=== PATIENT | female | born 1990 | race Caucasian/White ===

== ENCOUNTER 2017-07-02 19:24 | Emergency (ER) | payer OTHER ==
[~2017-07-02] VITALS: Ht 162.6 cm; Wt 55.8 kg
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
[2017-07-02 20:26] LABS: ALBUMIN 3.8 g/dL (3.4-5.0); ALK PHOS 50 U/L (46-116); ALT (SGPT) 37 U/L (14-59); ANION GAP 11 (6-14); AST (SGOT) 27 U/L (15-37); BARBITURATES NEG (NEG); BENZODIAZEPINES NEG (NEG); BLOOD UREA NITROGEN 7 mg/dL (7-20); CALCIUM 9.4 mg/dL (8.5-10.1); CANNABINOIDS POS (NEG); CARBON DIOXIDE 25 mmol/L (21-32); CHLORIDE 100 mmol/L (98-107); COCAINE NEG (NEG); CREATININE 0.5 mg/dL (0.6-1.0); GLUCOSE 90 mg/dL (70-99); METHADONE NEG (NEG); OPIATES NEG (NEG); PHENCYCLIDINE NEG (NEG); SODIUM 136 mmol/L (136-145); TOTAL BILIRUBIN 0.1 mg/dL (0.2-1.0); TOTAL PROTEIN 7.3 g/dL (6.4-8.2)
[2017-07-02 20:30] LABS: AMPHETAMINE/METHAMPHETAMINE NEG (NEG); DIRECT BILIRUBIN < 0.1 mg/dL (0.0-0.2)
[2017-07-02 20:38] LABS: BILIRUBIN,URINE NEG (NEG); CLARITY,URINE HAZY; COLOR,URINE PINK; GLUCOSE,URINE NEG (NEG); NITRITE,URINE NEG (NEG); UROBILINOGEN,URINE 0.2 mg/dL (0.2 mg/dL)
[2017-07-02 20:39] LABS: BACTERIA,URINE 0 /HPF (0-FEW); RBC,URINE TNTC /HPF (0-2); SQUAMOUS EPITHELIAL CELL,UR OCC /LPF
[2017-07-02] MEDS: IV RINGERS SOLUTION,LACTATED 1,000 ML IV SCH ×2 (20:59→21:31)
[2017-07-02] MEDS ORDERED: ONDANSETRON PF 4 MG/2 ML VIAL. IV ONE (21:00)
[2017-07-02] MEDS ORDERED: FAMOTIDINE 20 MG/2 ML VIAL IVP ONE (21:00)
[2017-07-02 21:02] LABS: BASO % 1 % (0-3); EOS # 0.2 x10^3/uL (0.0-0.7); EOS % 2 % (0-3); HEMOGLOBIN 10.8 g/dL (12.0-15.5); LYMPH # 1.8 x10^3/uL (1.0-4.8); LYMPH % 20 % (24-48); MEAN CORPUSCULAR HEMOGLOBIN 32 pg (25-35); MEAN CORPUSCULAR HGB CONC 35 g/dL (31-37); MEAN CORPUSCULAR VOLUME 91 fL (79-100); MONO # 0.7 x10^3/uL (0.0-1.1); MONO % 8 % (0-9); NEUT # 6.2 x10^3uL (1.8-7.7); NEUT % 70 % (31-73); PLATELET COUNT 168 x10^3/uL (140-400); RED BLOOD COUNT 3.41 x10^6/uL (3.50-5.40); RED CELL DISTRIBUTION WIDTH 12.7 % (11.5-14.5); WHITE BLOOD COUNT 8.9 x10^3/uL (4.0-11.0)
--- NOTE | 2017-07-02 21:05 | RAD ---
Obstetrical ultrasound less than 14 weeks HISTORY: female with vaginal bleeding. TECHNIQUE: Transabdominal transducer with grayscale, M-mode Doppler and duplex Doppler sonography. FINDINGS: Cervical length 4.6 cm no shortening or funneling of the cervix. Uterus measures 13.6 x 7.9 x 9.9 cm. Single intrauterine fetus in breech position with crown-rump length 6.37 cm estimating sonographic gestational age of 12 weeks 5 days and date of delivery of January 09, 2018. heart rate 162 bpm. Subjectively normal volume of amniotic fluid. It is too early to characterize the placenta. Maternal left ovary measures 2.7 x 2.5 x 1.5 cm. Limited visualization of the right ovary measures 2.4 x 3.4 x 1.4 cm. It is too early for anatomic evaluation. No subchorionic hemorrhage. IMPRESSION: Single living intrauterine fetus with estimated sonographic gestational age of 12 weeks 5 days. See discussion above. Electronically signed by: En Villar MD (07/02/2017 9:01 PM) [facility]
[2017-07-02 21:18] LABS: INFLUENZA A PATIENT NEGATIVE (NEGATIVE); INFLUENZA B PATIENT NEGATIVE (NEGATIVE)
[2017-07-02 22:39] VITALS: BP 122/80
[2017-07-05 22:08] LABS: CHLAMYDIA PROBE Negative (Negative)
== END 2017-07-02 22:41 | disposition home or self-care (01) ==
LOC: ER 19:24
DX: O20.0 Threatened abortion (principal); O21.0 Mild hyperemesis gravidarum; O99.321 Drug use complicating pregnancy, first trimester; O99.011 Anemia complicating pregnancy, first trimester; O99.331 Smoking (tobacco) complicating pregnancy, first trimester; F12.10 Cannabis abuse, uncomplicated; Z3A.13 13 weeks gestation of pregnancy
CPT/HCPCS: 36415; 76801; 80048; 80076; 80307; 81001; 84702; 85025; 85610; 86900; 86901; 87086; 87491; 87591; 87804; 96361; 96374; 96375; 99285; J2405; J7120; Q0111; S0028; G0479

== ENCOUNTER 2019-10-17 09:14 | Emergency (ER) | payer MEDICAID, OTHER ==
[~2019-10-17] VITALS: Ht 162.6 cm; Wt 50.0 kg
[2019-10-17] MEDS ORDERED: IV NORMAL SALINE 1,000ML 1,000 ML IV ONE ×2 (09:30→09:45)
[2019-10-17 09:37] LABS: BASO # 0.1 x10^3/uL (0.0-0.2); BASO % 1 % (0-3); EOS # 0.3 x10^3/uL (0.0-0.7); EOS % 2 % (0-3); HEMATOCRIT 26.8 % (36.0-47.0); HEMOGLOBIN 9.1 g/dL (12.0-15.5); LYMPH # 1.8 x10^3/uL (1.0-4.8); LYMPH % 10 % (24-48); MEAN CORPUSCULAR HEMOGLOBIN 31 pg (25-35); MEAN CORPUSCULAR HGB CONC 34 g/dL (31-37); MEAN CORPUSCULAR VOLUME 92 fL (79-100); MONO % 5 % (0-9); NEUT # 14.7 x10^3uL (1.8-7.7); NEUT % 82 % (31-73); PLATELET COUNT 234 x10^3/uL (140-400); RED BLOOD COUNT 2.91 x10^6/uL (3.50-5.40); RED CELL DISTRIBUTION WIDTH 13.9 % (11.5-14.5); WHITE BLOOD COUNT 17.9 x10^3/uL (4.0-11.0)
[2019-10-17 09:45] LABS: ANION GAP 8 (6-14); BLOOD UREA NITROGEN 7 mg/dL (7-20); BUN/CREATININE RATIO 12 (6-20); CARBON DIOXIDE 25 mmol/L (21-32); CHLORIDE 105 mmol/L (98-107); CREATININE 0.6 mg/dL (0.6-1.0); GFR 118.2; GLUCOSE 126 mg/dL (70-99); POTASSIUM 3.5 mmol/L (3.5-5.1); SODIUM 138 mmol/L (136-145)
[2019-10-17 09:51] LABS: ALBUMIN 2.2 g/dL (3.4-5.0); ALBUMIN/GLOBULIN RATIO 0.8 (1.0-1.7); ALK PHOS 49 U/L (46-116); ALT (SGPT) 18 U/L (14-59); AST (SGOT) 18 U/L (15-37); MAGNESIUM 1.6 mg/dL (1.8-2.4)
[2019-10-17 10:11] LABS: BILIRUBIN,URINE NEG (NEG); CLARITY,URINE HAZY; COLOR,URINE YELLOW; GLUCOSE,URINE NEG (NEG); NITRITE,URINE NEG (NEG); UROBILINOGEN,URINE 0.2 mg/dL (0.2 mg/dL)
[2019-10-17 10:12] LABS: BACTERIA,URINE 0 /HPF (0-FEW); SQUAMOUS EPITHELIAL CELL,UR FEW /LPF; WBC,URINE 20-40 /HPF (0-4)
[2019-10-17 10:18] LABS: BARBITURATES NEG (NEG); BENZODIAZEPINES POS (NEG); CANNABINOIDS POS (NEG); COCAINE NEG (NEG); METHADONE NEG (NEG); OPIATES NEG (NEG); PHENCYCLIDINE NEG (NEG)
[2019-10-17 10:20] LABS: AMPHETAMINE/METHAMPHETAMINE POS (NEG)
[2019-10-17 10:22] LABS: TOTAL BILIRUBIN < 0.1 mg/dL (0.2-1.0)
--- NOTE | 2019-10-17 10:28 | PHYS DOC ---
Past History Past Medical History: Anxiety, Other Additional Past Medical Histor: PTSD Past Surgical History: No Surgical History Smoking: Cigarettes Alcohol Use: None Drug Use: Marijuana General Adult EDM: Chief Complaint: VAGINAL BLEEDING HPI: HPI: 29 year old female presents via EMS with report of "excessive vaginal bleeding" with concern for active miscarriage. Patient reports she thinks she previously delivered the fetus at home, but "flushed it down the toilet". Reports she is unsure how far along she would be. Reports this would be her 6th and 2nd miscarriage. Reports lightheadedness and dizziness. Reports bleeding started last night. EMS reports patient's initial blood pressure upon arrival was 60s/40s. EMS reports starting line and giving IVF with improvement. History of present illness limited as patient poor historian and appears under influence of drugs or ETOH. Patient denies ETOH but reports THC use. Review of Systems: Review of Systems: Constitutional: Denies fever or chills Respiratory: Denies cough or shortness of breath Cardiovascular: Denies chest pain or palpitations GI: Reports lower pelvic/abdominal cramping; denies nausea or vomiting : Denies dysuria or hematuria FERMENTER OPERATOR: Reports and significant vaginal bleeding with passage of clots and tissue Neurologic: Denies headache; reports lightheadedness or dizziness Review of systems limited as patient poor historian and appears under influence of drugs or ETOH. Current Medications: Current Meds: Current Medications Medications (Trade) Dose Ordered Sig/Elroy Start Time Stop Time Status Last Admin Dose Admin Sodium Chloride 1,000 ml @ 1,000 mls/hr 1X ONCE 10/17/19 09:45 10/17/19 10:44 10/17/19 09:45 1,000 MLS/HR Allergies: Allergies: Allergies Coded Allergies Type Severity Reaction Last Updated Verified No Known Drug Allergies 07/02/17 No Physical Exam: PE: Constitutional: Well developed, pale, slow to respond to questioning HENT: Normocephalic, atraumatic Eyes: Conjunctiva normal, no discharge Neck: Normal range of motion, no tenderness, supple Cardiovascular: Heart rate normal, regular rhythm Lungs & Thorax: Bilateral breath sounds clear to auscultation, no wheezing Abdomen: Soft, lower quadrant/pelvis tenderness Pelvic exam: General Pediatrician RNs, external genitalia normal, large clots removed from vaginal vault, products of conception appear in open os, manually removed a portion with ring forceps Skin: Warm, dry, pallor Extremities: No tenderness, ROM intact, no edema Neurologic: Alert and oriented X 3, slurred speech, appears intoxicated, no focal deficits noted Current Patient Data: Labs: Laboratory Tests Test 10/17/19 09:15 White Blood Count 17.9 x10^3/uL (4.0-11.0) H Red Blood Count 2.91 x10^6/uL (3.50-5.40) L Hemoglobin 9.1 g/dL (12.0-15.5) L Hematocrit 26.8 % (36.0-47.0) L Mean Corpuscular Volume 92 fL (79-100) Mean Corpuscular Hemoglobin 31 pg (25-35) Mean Corpuscular Hemoglobin Concent 34 g/dL (31-37) Red Cell Distribution Width 13.9 % (11.5-14.5) Platelet Count 234 x10^3/uL (140-400) Neutrophils (%) (Auto) 82 % (31-73) H Lymphocytes (%) (Auto) 10 % (24-48) L Monocytes (%) (Auto) 5 % (0-9) Eosinophils (%) (Auto) 2 % (0-3) Basophils (%) (Auto) 1 % (0-3) Neutrophils # (Auto) 14.7 x10^3uL (1.8-7.7) H Lymphocytes # (Auto) 1.8 x10^3/uL (1.0-4.8) Monocytes # (Auto) 1.0 x10^3/uL (0.0-1.1) Eosinophils # (Auto) 0.3 x10^3/uL (0.0-0.7) Basophils # (Auto) 0.1 x10^3/uL (0.0-0.2) Platelet Estimate Pending Prothrombin Time 9.3 SEC (9.4-11.4) L Prothrombin Time INR 0.9 (0.9-1.1) Activated Partial Thromboplast Time 22 SEC (23-33) L Sodium Level 138 mmol/L (136-145) Potassium Level 3.5 mmol/L (3.5-5.1) Chloride Level 105 mmol/L (98-107) Carbon Dioxide Level 25 mmol/L (21-32) Anion Gap 8 (6-14) Blood Urea Nitrogen 7 mg/dL (7-20) Creatinine 0.6 mg/dL (0.6-1.0) Estimated GFR (Cockcroft-Gault) 118.2 BUN/Creatinine Ratio 12 (6-20) Glucose Level 126 mg/dL (70-99) H Calcium Level 8.0 mg/dL (8.5-10.1) L Magnesium Level Pending Total Bilirubin Pending Aspartate Amino Transferase (AST) Pending Alanine Aminotransferase (ALT) Pending Alkaline Phosphatase Pending Total Protein Pending Albumin Pending Albumin/Globulin Ratio Pending Ethyl Alcohol Level < 10 mg/dL (0-10) Vital Signs: Vital Signs Date Time Temp Pulse Resp B/P (MAP) Pulse Ox O2 Delivery O2 Flow Rate FiO2 10/17/19 09:14 97.9 91 20 90/51 (64) Room Air EKG: EKG: [] Radiology/Procedures: Radiology/Procedures: PROCEDURE: OB <14 WKS Examination: OB <14 WKS History: Vaginal bleeding, reported miscarriage Comparison/Correlation: No relevant prior exams Findings: OB ultrasound exam was performed. Transabdominal technique was utilized. The patient reportedly declined transvaginal technique. Mildly complex fluid is present within the uterine cavity and uterine cervix. Myometrial echotexture is within normal limits. There is no flow identified on color Doppler imaging of the endometrial cavity at its superior aspect in the transverse plane. Ovaries are not delineated. No pelvic free fluid. Impression: No intrauterine gestation identified. Complex fluid within the uterine cavity and uterine cervix which may relate to reported spontaneous . No flow identified within the endometrial cavity to suggest retained products of conception. Consider continued follow-up serial beta hCG and possibly follow-up ultrasound if ectopic gestation is a concern. Electronically signed by: Elmer Merrill MD (10/17/2019 10:25 AM) [id number] Course & Med Decision Making: Course & Med Decision Making Pertinent Labs and Imaging studies reviewed. (See chart for details) Patient presents with HPI and physical exam concerning for active miscarriage. Large blood clots noted in vaginal vault. Patient appears pale and EMS reports of significant hypotension. Hypotension stabilized with IVF boluses. Pelvic exam also noted open os with products of conception. Labs obtained and posted to chart. Hemoglobin 9.1. Beta HCG 17,306. ETOH negative. UDS positive for methamphetamines, benzodiazepines, and THC. UA with 20-40 WBC on straight cath urine. No bacteria noted however. More likely contamination but given straight cath, will given empiric 1 gram Rocephin IV. Patient requiring transfer for further evaluation and possible D&C. Discussed case with Dr. Yun (TRACK SUPERVISOR) who is in agreement with transfer for admission. Discussed findings and plan with patient, who acknowledges understanding and agreement. Dragon Disclaimer: Dragon Disclaimer: This electronic medical record was generated, in whole or in part, using a voice recognition dictation system. Departure Departure: Impression: Primary Impression: Incomplete miscarriage Additional Impressions: Anemia Qualified Codes: D64.9 - Anemia, unspecified Hypotension Qualified Codes: I95.9 - Hypotension, unspecified Methamphetamine abuse Marijuana abuse UTI (urinary tract infection) Qualified Codes: N30.01 - Acute cystitis with hematuria Disposition: 05 TRANSFER OTHER ([facility] ) Condition: GUARDED Referrals: PCPPATRICK (PCP) Critical Care Time Critical care time was 30 minutes which includes time at bedside, spent in disc ussion of patient's care with specialists and/or family members, with interpretation of laboratory and/or radiological studies and is exclusive of procedures. JESSICA VANCE DO October 17, 2019 10:28
[2019-10-17] MEDS ORDERED: IV NORMAL SALINE 50ML 50 ML ONE (11:04)
[2019-10-17] MEDS ORDERED: cefTRIAXone SODIUM 1 GM VIAL ONE (11:04)
[2019-10-17 11:20] VITALS: BP 106/64
[2019-10-17 13:47] LABS: % ATYL 1 % (0-0); % BANDS 10 % (0-9); % EOS 1 % (0-5); % LYMPHS 11 % (24-48); % MONOS 1 % (0-10); % SEGS 76 % (35-66)
[2019-10-17 13:49] LABS: BURR CELLS PRESENT; PLT ESTIMATE ADEQUATE (ADEQUATE)
--- NOTE | 2019-10-19 18:06 | PATHOLOGY ---
[facility] Accession Number: [id number] . 01 Material submitted: . product of conception - PRODUCT OF CONCEPTION . 01 Clinical history: . Miscarriage; hypotension . 02 Diagnosis: Vaginal specimen, designated products of misconception: - Blood clot and segment of umbilical cord. - No chorionic villi identified. . (JPM:mm; 10/19/2019) [facility] 10/19/2019 1710 Local . 02 Electronically signed: . Carlos Srinivasan MD, Pathologist NPI- [id number] . 01 Gross description: . The specimen is received in formalin, labeled "Shanin Alaniz, vaginal specimen". The specimen is additionally labeled on the requisition as, "products of conception". Received is a moderate amount of blood coagulum measuring 2.9 x 2.3 x 0.5 cm in aggregate dimensions. Also received is a segment of umbilical cord measuring 6.6 cm in length by 0.5 cm in diameter. The vasculature of the umbilical cord is not able to be determined. Bank Cashier sections of the umbilical cord are submitted in cassette A1, with the remainder of the specimen submitted in cassettes A2 and A3. ([facility]; 10/18/2019) QA/QA 10/19/2019 1623 Local . 02 Pathologist provided ICD-10: O03.9 . 02 CPT . 824946 Specimen Comment: A courtesy copy of this report has been sent to [phone] Specimen Comment: Report sent to Performed at: 01 [facility] [address], [place], [place] [id number] MD Srinivasan Iyer MD Phone: [phone] Performed at: [facility] [address], [place] [id number] MD Carlos Srinivasan MD Phone: [phone]
== END 2019-10-17 11:40 | disposition short-term general hospital (02) ==
LOC: ER 09:14
DX: O03.4 Incomplete spontaneous abortion without complication (principal); O99.011 Anemia complicating pregnancy, first trimester; O26.51 Maternal hypotension syndrome, first trimester; R42 Dizziness and giddiness; O23.41 Unspecified infection of urinary tract in pregnancy, first trimester; F15.10 Other stimulant abuse, uncomplicated; F12.10 Cannabis abuse, uncomplicated; Z3A.00 Weeks of gestation of pregnancy not specified
CPT/HCPCS: 36415; 76801; 80053; 80307; 81001; 83735; 84702; 85007; 85025; 85610; 85730; 86850; 86900; 86901; 87086; 96361; 96374; 99285; G0480; J0696; J7030

== ENCOUNTER → 2021-02-15 | Outpatient (CLI) | payer MEDICAID ==
--- NOTE | 2021-02-15 18:20 | RAD ---
Exam Date: 02/15/2021 4:37 PM XR FOOT_LEFT 3 VIEWS Indication: Reason: LEFT FOOT PAIN, LATERAL PAIN AND SWELLING / Spl. Instructions: / History: . FINDINGS/ IMPRESSION: There is a minimally displaced acute avulsion of the base of the fifth metatarsal. Soft tissue swell ing is noted. Mild degenerative changes are seen. Alignment is maintained. Electronically signed by: Wilfrido Farfan MD (02/15/2021 6:18 PM) BALJINDER
== END ==
LOC: PMG 16:29
PROVIDERS: ATTEND Physician Assistant
DX: S90.32XA Contusion of left foot, initial encounter (principal); M19.072 Primary osteoarthritis, left ankle and foot; M79.89 Other specified soft tissue disorders; X58.XXXA Exposure to other specified factors, initial encounter; Y93.89 Activity, other specified; Y92.89 Other specified places as the place of occurrence of the external cause; Y99.8 Other external cause status
CPT/HCPCS: 73630

== ENCOUNTER 2021-03-13 05:15 | Emergency (ER) | payer MEDICAID ==
[~2021-03-13] VITALS: Ht 162.6 cm; Wt 60.0 kg
--- NOTE | 2021-03-13 05:39 | PHYS DOC ---
Past History Past Medical History: Anxiety, Other Additional Past Medical Histor: PTSD Past Surgical History: No Surgical History Smoking: Cigarettes Alcohol Use: None Drug Use: Marijuana Adult General HPI HPI Patient is a 30-year-old female, G6, P5 at 38 weeks who presents with a chief complaint of contractions and states that her water broke about an hour before coming into the emergency department. States it woke her up from sleep. States she is having contractions but feel like previous contractions about every 3 to 4 minutes that last about 30 seconds to a minute. Denies any recent travels, traumas, illnesses, chest pain, shortness of breath. Review of Systems Review of Systems Constitutional: Denies fever or chills [] Eyes: Denies change in visual acuity, redness, or eye pain [] HENT: Denies nasal congestion or sore throat [] Respiratory: Denies cough or shortness of breath [] Cardiovascular: No additional information not addressed in HPI [] GI: Denies abdominal pain, nausea, vomiting, bloody stools or diarrhea [] : Denies dysuria or hematuria [] Musculoskeletal: Denies back pain or joint pain [] Integument: Denies rash or skin lesions [] Neurologic: Denies headache, focal weakness or sensory changes [] Endocrine: Denies polyuria or polydipsia [] All other systems were reviewed and found to be within normal limits, except as documented in this note. Allergies Allergies Allergies Coded Allergies Type Severity Reaction Last Updated Verified No Known Drug Allergies 07/02/17 No Physical Exam Physical Exam Constitutional: Well developed, well nourished, no acute distress, non-toxic appearance. [] HENT: Normocephalic, atraumatic, bilateral external ears normal, oropharynx moist, no oral exudates, nose normal. [] Eyes: conjunctiva normal, no discharge. [] Neck: Normal range of motion, Cardiovascular:Heart rate regular rhythm, no murmur [] Lungs & Thorax: Bilateral breath sounds clear to auscultation [] Abdomen: Gravid, soft, no tenderness, no masses, no pulsatile masses : Clear liquid in the vaginal vault, no blood, os at 2 cm. [] Skin: Warm, dry, no erythema, no rash. [] Back: no CVA tenderness. [] Extremities: No tenderness, no cyanosis, no clubbing, ROM intact, no edema. [] Neurologic: Alert and oriented X 3, normal motor function, normal sensory function, no focal deficits noted. [] Psychologic: Affect normal, judgement normal, mood normal. [] EKG EKG [] Radiology/Procedures Radiology/Procedures [] Heart Score C/O Chest Pain: No Risk Factors: Risk Factors: DM, Current or recent (<one month) smoker, HTN, HLP, family history of CAD, obesity. Risk Scores: Risk Factors: DM, Current or recent (<one month) smoker, HTN, HLP, family history of CAD, obesity. Course & Med Decision Making Course & Med Decision Making Patient is a 30-year-old female, at 38 weeks who presents after water break an hour before, having contractions about every 3 to 5 minutes lasting about a minute Vital signs notable for sinus tachycardia. Physical exam noted above. 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 Basic labs obtained. Patient with no Covid concerns. Patient appears to be in active labor. Discussed patient with [facility] who accepted patient in transfer. [] Dragon Disclaimer Dragon Disclaimer This electronic medical record was generated, in whole or in part, using a voice recognition dictation system. Departure Departure: Impression: Primary Impression: Additional Impression: Active labor at term Disposition: 02 SHORT TERM HOSPITAL Condition: STABLE Referrals: PCP,NO (PCP) Problem Qualifiers JUANITO MONAE MD Mar 13, 2021 05:39
[2021-03-13 05:40] VITALS: BP 126/71
[2021-03-13] MEDS ORDERED: METOCLOPRAMIDE HCL 10 MG/2 ML VIAL. ONE (05:59)
[2021-03-13] MEDS ORDERED: METOCLOPRAMIDE HCL 10 MG/2 ML VIAL. IVP ONE (06:30)
[2021-03-13 06:39] LABS: BASO # 0.1 x10^3/uL (0.0-0.2); BASO % 1 % (0-3); EOS # 0.1 x10^3/uL (0.0-0.7); EOS % 1 % (0-3); HEMATOCRIT 32.4 % (36.0-47.0); HEMOGLOBIN 10.3 g/dL (12.0-15.5); LYMPH # 1.7 x10^3/uL (1.0-4.8); LYMPH % 11 % (24-48); MEAN CORPUSCULAR HEMOGLOBIN 27 pg (25-35); MEAN CORPUSCULAR HGB CONC 32 g/dL (31-37); MEAN CORPUSCULAR VOLUME 85 fL (79-100); MONO % 6 % (0-9); NEUT % 82 % (31-73); PLATELET COUNT 207 x10^3/uL (140-400); RED BLOOD COUNT 3.84 x10^6/uL (3.50-5.40); RED CELL DISTRIBUTION WIDTH 15.7 % (11.5-14.5); WHITE BLOOD COUNT 15.9 x10^3/uL (4.0-11.0)
[2021-03-13 06:47] LABS: CALCIUM 8.2 mg/dL (8.5-10.1); CREATININE 0.4 mg/dL (0.6-1.0); GFR 187.4; POTASSIUM 3.6 mmol/L (3.5-5.1)
[2021-03-13 14:44] LABS: % BANDS 1 % (0-9); % EOS 1 % (0-5); % LYMPHS 14 % (24-48); % MONOS 5 % (0-10); % SEGS 79 % (35-66)
[2021-03-13 14:45] LABS: PLT ESTIMATE ADEQUATE (ADEQUATE)
== END 2021-03-13 06:02 | disposition short-term general hospital (02) ==
LOC: ER 05:15
DX: O62.8 Other abnormalities of forces of labor (principal); O99.333 Smoking (tobacco) complicating pregnancy, third trimester; Z3A.38 38 weeks gestation of pregnancy
CPT/HCPCS: 36415; 80048; 85007; 85025; 96374; 99285; J2765; 99283